=== PATIENT | female | born 1990 | race African-American/Black ===

== ENCOUNTER 2022-09-29 14:43 | Outpatient (CLI) | payer OTHER, SELFPAY ==
--- NOTE | ~2022-09-29 | US_ITS ---
EXAMINATION: US OB <= 14 weeks fetus DATE: 09/29/2022 16:10 INDICATION: Encounter for supervision of . TECHNIQUE: Real-time transabdominal obstetric ultrasound. FINDINGS: No prior studies for comparison. The uterus measures 13.7 x 10 x 8.6 cm. There are twin living intrauterine with 2 separate gestational sacs and 2 possible separate placentas. Findings compatible with dichorionic, diamniotic . Baby A crown rump length is 3.95 cm, 10 weeks 6 day gestation. Twin B crown-rump length is 4.25 cm, 11 weeks 1 day gestation. Twin A heart rate is 67 BPM. Twin B heart rate is 165 BPM. Right ovary measures 2.3 x 1.8 x 1.9 cm and contains a 1.3 cm follicle. Left ovary measures 1.8 x 1.7 x 1.8 cm. IMPRESSION: 1.: Twin living dichorionic, diamniotic intrauterine with an EGA of 11 weeks, 0 days (EDC b y current ultrasound of 04/20/2023). Reviewed, dictated and finalized at location A. IMPRESSION: 1.: Twin living dichorionic, diamniotic intrauterine with an EGA of 1 1 weeks, 0 days (EDC by current ultrasound of 04/20/2023).
== END 2022-09-29 14:44 | disposition home or self-care (01) ==
PROVIDERS: Visit Provider Registered Nurse
DX: O30.041 Twin pregnancy, dichorionic/diamniotic, first trimester (principal); Z3A.11 11 weeks gestation of pregnancy
CPT/HCPCS: 76801

== ENCOUNTER 2022-11-06 13:53 | Observation (INO) | payer OTHER, SELFPAY ==
[2022-11-06] VITALS (7 sets, daily range): BP systolic 90–136; BP diastolic 19–73; PULSE 91–110; BMI 28.0
[2022-11-06] MEDS: DEXTROSE 5%/0.9% SOD CHL 1,000 ML 200 ML IV CONT (14:51)
[2022-11-06] MEDS: PROCHLORPERAZINE EDISYLATE 10 MG/2 ML VIAL IV PUSH (14:54)
--- NOTE | 2022-11-06 14:58 | OBADM ---
This patient, Raegan Bryan, admitted to the OB room OB Post 112 for observation. Patient/family oriented to hospital policies and general routines including ID bracelet, bed and alarms, visiting hours, pain management, procedures, bathroom and other care routines, personal items, smoking policy, room service/diet, and visiting hours. Patient/Family are encouraged to report perceived risks to care and to ask questions if they do not understand what they are told or what they should do.
[2022-11-06 15:01] LABS: Basophils Percent Auto 0.3 % (0.2-1.2); Eosinophils Percent Auto 0.6 % (0-4.4); Hematocrit 32.6 % (37.0-47.0); Hemoglobin 10.9 g/dL (12.0-15.0); Immature Granulocyte Absolute 0.03 K/mm3 (0.00-0.031); Immature Granulocyte Percent A 0.4 % (0-0.5); Lymphocytes Absolute Auto 1.88 K/mm3 (0.9-3.2); Lymphocytes Percent Auto 27.6 % (18.3-44.2); Mean Corpuscular HGB Conc 33.4 g/dl (32-36); Mean Corpuscular Hemoglobin 29.5 pg (26-34); Mean Corpuscular Volume 88.1 fl (80-100); Mean Platelet Volume 11.1 fl (7.4-10.4); Monocytes Absolute Auto 0.3 K/mm3 (0.1-0.6); Monocytes Percent Auto 4.3 % (2.6-8.5); Neutrophils Absolute Auto 4.5 K/mm3 (1.3-6.7); Neutrophils Percent Auto 66.8 % (45.5-73.1); Platelet Count Result 209 k/mm3 (150-375); Red Cell Distribution Width 14.5 % (11.5-14.5); White Blood Count 6.8 K/mm3 (4.5-10.0)
[2022-11-06] MEDS: MORPHINE SULFATE (*CRX) 2 MG/ML INJ IV PUSH (15:02)
[2022-11-06 15:11] LABS: Alanine Aminotransferase 20 U/L (6-35); Albumin Level 4.1 g/dL (3.5-5.1); Alkaline Phosphatase 66 U/L (38-126); Anion Gap 9 mmol/L (8-16); Aspartate Amino Transferase 28 U/L (14-36); Bilirubin,Total 0.4 mg/dL (0.2-1.3); Blood Urea Nitrogen 7 mg/dL (7-17); Calcium 9.4 mg/dL (8.4-10.2); Carbon Dioxide 22 mmol/L (22-30); Chloride 104 mmol/L (98-107); Estimated CRCL calculation 151 ml/min; Estimated Glomerular Filt Rate > 60; Glucose 93 mg/dL (65-110); Potassium 3.5 mmol/L (3.4-5.0); Sodium 135 mmol/L (137-145)
--- NOTE | 2022-11-22 11:05 | PM.OBTRLD ---
OB - Triage/Final Diagnosis Visit Information Comments/Additional reasons for admission: I have assessed the risk for this patient, Raegan Bryan, and determined that she would benefit from observation care. Evaluation Laboratory results: Laboratory Tests 11/06/22 14:48 WBC 6.8 RBC 3.70 L Hgb 10.9 L Hct 32.6 L MCV 88.1 MCH 29.5 MCHC 33.4 RDW 14.5 Plt Count 209 MPV 11.1 H Immature Gran % (Auto) 0.4 Neut % (Auto) 66.8 Lymph % (Auto) 27.6 [place] % (Auto) 4.3 Eos % (Auto) 0.6 Baso % (Auto) 0.3 Lymph # (Auto) 1.88 [place] # (Auto) 0.3 Eos # (Auto) 0.0 Baso # (Auto) 0.0 Abs Immat Gran (auto) 0.03 Absolute Neuts (auto) 4.5 Absolute Nucleated RBC 0.0 Nucleated RBC % 0.0 Sodium 135 L Potassium 3.5 Chloride 104 Carbon Dioxide 22 Anion Gap 9 BUN 7 Creatinine 0.50 L Estim Creat Clear Calc 151 Estimated GFR > 60 Glucose 93 Calcium 9.4 Total Bilirubin 0.4 AST 28 ALT 20 Alkaline Phosphatase 66 Total Protein 8.0 Albumin 4.1 Final Diagnosis (1) Migraine headache: Code(s): G43.909 - Migraine, unspecified, not intractable, without status migrainosus Status: Acute
== END 2022-11-06 17:38 | disposition home or self-care (01) ==
PROVIDERS: Admitting Provider Obstetrics & Gynecology; Visit Provider Obstetrics & Gynecology
DX: O26.891 Other specified pregnancy related conditions, first trimester (principal); G43.909 Migraine, unspecified, not intractable, without status migrainosus; Z3A.16 16 weeks gestation of pregnancy
CPT/HCPCS: 36415; 80053; 85025; 96374; 96375; G0378; G0379; J0780; J2270; J7042

== ENCOUNTER 2022-11-20 11:40 | Observation (INO) | payer OTHER, SELFPAY ==
[2022-11-20 13:15] LABS: Appearance Urine Clear (Clear); Bilirubin Urine Negative (Negative); Blood Urine Negative (Negative); Color Urine Yellow (Yellow); Glucose Urine UA Negative (Negative); Ketones Urine Negative (Negative); Leukocyte Esterase Ur Negative LEU/UL (NEGATIVE); Nitrate Urine Negative (Negative); Protein Urine Negative (Negative); Specific Grav Ur 1.014 (1.001-1.035); Urobilinogen Urine 0.2 mg/dL (<2.0); pH Urine 8.5 (5.0-9.0)
[2022-11-20 13:27] LABS: Add Urine Microscopic? NO
--- NOTE | 2022-11-20 13:42 | PC.NURSE ---
Dr Pinto notified of lower abd cramping and UA results. Ok to check patient's cervix, if closed ok to dc home with precautions and encourage to use abd binder.
--- NOTE | 2022-12-11 19:05 | P.PNOB_ITS ---
OB - Triage/Final Diagnosis Visit Information Comments/Additional reasons for admission: I have assessed the risk for this patient, Raegan Bryan, and determined that she would benefit from observation care. Evaluation Laboratory results: Laboratory Tests 11/20/22 12:59 Urine Color Yellow Urine Appearance Clear Urine pH 8.5 Ur Specific [place] 1.014 Urine Protein Negative Urine Glucose (UA) Negative Urine Ketones Negative Ur Blood (Man) Negative Urine Nitrate Negative Urine Bilirubin Negative Urine Urobilinogen 0.2 Ur Leukocyte Esterase Negative Final Diagnosis (1) Migraine headache: Code(s): G43.909 - Migraine, unspecified, not intractable, without status migrainosus Status: Acute
== END 2022-11-20 14:06 | disposition home or self-care (01) ==
PROVIDERS: Admitting Provider Obstetrics & Gynecology; Visit Provider Obstetrics & Gynecology
DX: O99.354 Diseases of the nervous system complicating childbirth (principal); G43.909 Migraine, unspecified, not intractable, without status migrainosus; O26.891 Other specified pregnancy related conditions, first trimester; R10.9 Unspecified abdominal pain; Z3A.17 17 weeks gestation of pregnancy
CPT/HCPCS: 81003; 87086; G0378; G0379

== ENCOUNTER 2023-01-28 22:34 | Outpatient (CLI) | payer OTHER, SELFPAY ==
[2023-01-28] VITALS (12 sets, daily range): BP systolic 113–137; BP diastolic 52–80; PULSE 103–129; O2SAT 98–100
[2023-01-28 23:22] LABS: Basophils Percent Auto 0.2 % (0.2-1.2); Eosinophils Percent Auto 0.6 % (0-4.4); Hematocrit 27.8 % (37.0-47.0); Hemoglobin 9.1 g/dL (12.0-15.0); Immature Granulocyte Absolute 0.05 K/mm3 (0.00-0.031); Immature Granulocyte Percent A 0.8 % (0-0.5); Lymphocytes Absolute Auto 1.87 K/mm3 (0.9-3.2); Lymphocytes Percent Auto 28.3 % (18.3-44.2); Mean Corpuscular HGB Conc 32.7 g/dl (32-36); Mean Corpuscular Hemoglobin 28.4 pg (26-34); Mean Corpuscular Volume 86.9 fl (80-100); Mean Platelet Volume 12.1 fl (7.4-10.4); Monocytes Absolute Auto 0.3 K/mm3 (0.1-0.6); Monocytes Percent Auto 4.5 % (2.6-8.5); Neutrophils Absolute Auto 4.3 K/mm3 (1.3-6.7); Neutrophils Percent Auto 65.6 % (45.5-73.1); Platelet Count Result 159 k/mm3 (150-375); Red Cell Distribution Width 14.6 % (11.5-14.5); White Blood Count 6.6 K/mm3 (4.5-10.0)
[2023-01-28 23:25] LABS: Appearance Urine Clear (Clear); Bilirubin Urine Negative (Negative); Blood Urine Negative (Negative); Color Urine Yellow (Yellow); Glucose Urine UA Trace mg/dL (Negative); Ketones Urine 1+ mg/dL (Negative); Leukocyte Esterase Ur Negative LEU/UL (NEGATIVE); Nitrate Urine Negative (Negative); Protein Urine Negative (Negative); Specific Grav Ur 1.015 (1.001-1.035); Urobilinogen Urine 0.2 mg/dL (<2.0)
[2023-01-28 23:37] LABS: Alanine Aminotransferase 24 U/L (6-35); Albumin Level 3.4 g/dL (3.5-5.1); Alkaline Phosphatase 95 U/L (38-126); Anion Gap 7 mmol/L (8-16); Aspartate Amino Transferase 30 U/L (14-36); Bilirubin,Total 0.2 mg/dL (0.2-1.3); Blood Urea Nitrogen 5 mg/dL (7-17); Calcium 8.7 mg/dL (8.4-10.2); Carbon Dioxide 19 mmol/L (22-30); Chloride 107 mmol/L (98-107); Estimated Glomerular Filt Rate > 60; Glucose 130 mg/dL (65-110); Sodium 133 mmol/L (137-145); Uric Acid 3.7 mg/dL (2.5-7.5)
[2023-01-28 23:58] LABS: Add Urine Microscopic? NO
[2023-01-29] VITALS (16 sets, daily range): BP systolic 111–114; BP diastolic 52–61; PULSE 93–124; O2SAT 100
[2023-01-29] MEDS: LACTATED RINGERS 1,000 ML 999 ML IV CONT (00:23)
[2023-01-29 00:28] LABS: Creatinine Urine 89.1 mg/dL; Total Protein Urine Random 8 mg/dL; Ur Ttl Prot Creatinine Ratio 0.09 mg/mg (0-0.20)
--- NOTE | 2023-01-29 00:36 | OBADM ---
This patient, Raegan Bryan, admitted to the OB room OB Post 115 for observation. Patient/family oriented to hospital policies and general routines including ID bracelet, bed and alarms, visiting hours, pain management, procedures, bathroom and other care routines, personal items, smoking policy, room service/diet, and visiting hours. Patient/Family are encouraged to report perceived risks to care and to ask questions if they do not understand what they are told or what they should do.
== END 2023-01-29 01:07 | disposition home or self-care (01) ==
LOC: ANHOBPP 01-29 01:27 → ANHOBOP 01-30 06:51
PROVIDERS: Obstetrics & Gynecology; Visit Provider Obstetrics & Gynecology
DX: R51.9 Headache, unspecified (principal)
CPT/HCPCS: 36415; 80053; 81003; 82570; 84156; 84550; 85025; 87086; 87088; J7120

== ENCOUNTER 2023-01-31 16:53 | Observation (INO) | payer OTHER, SELFPAY ==
[2023-01-31] VITALS (10 sets, daily range): BP systolic 93–131; BP diastolic 45–78; PULSE 99–120; BMI 28.8
--- NOTE | ~2023-01-31 | US_ITS ---
EXAMINATION: US OB limited INDICATION: TWIN GESTATION - CERVICAL LENGTH ONLY PLEASE TECHNIQUE: Sonography of the pelvis was performed by transabdominal and transvaginal techniques. COMPARISON: 09/29/2022. RESULT: Cervical length 5.7 cm. The cervix is closed. Baby A: Location is fundal and to the maternal right. Male. Vertex, longitudinal lie. heart rat e 157 bpm. Deepest amniotic pocket measures 4.2 cm. Baby B: Location is fundal and to the maternal left. Breech, longitudinal lie. Female. heart ra te 161 bpm. Deepest amniotic pocket 3.4 cm IMPRESSION: Twin, live intrauterine gestations. Long and closed cervix, measuring 5.7 cm. Reviewed, dictated and finalized at location K.
[2023-01-31] MEDS: NIFEdipine 10 MG CAPSULE 20 MG PO (17:55)
[2023-01-31 18:22] LABS: Appearance Urine Clear (Clear); Bilirubin Urine Negative (Negative); Blood Urine Negative (Negative); Color Urine Yellow (Yellow); Glucose Urine UA Negative (Negative); Ketones Urine 1+ mg/dL (Negative); Leukocyte Esterase Ur Negative LEU/UL (Negative); Nitrate Urine Negative (Negative); Protein Urine Negative (Negative); Specific Grav Ur 1.005 (1.001-1.035); Urobilinogen Urine 0.2 mg/dL (<2.0); pH Urine 6.5 (5.0-9.0)
[2023-01-31] MEDS: LACTATED RINGERS 1,000 ML 999 ML IV CONT (18:23)
[2023-01-31] MEDS: ACETAMINOPHEN 500 MG TABLET 1000 MG PO (18:23)
[2023-01-31 18:25] LABS: Add Urine Microscopic? NO
[2023-01-31 18:55] LABS: Fetal Fibronectin Negative
--- NOTE | 2023-01-31 19:43 | OBADM ---
This patient, Raegan Bryan, admitted to the OB room Labor/Delivery/Recovery 106 for observation. Patient/family oriented to hospital policies and general routines including ID bracelet, bed and alarms, visiting hours, pain management, procedures, bathroom and other care routines, personal items, smoking policy, room service/diet, and visiting hours. Patient/Family are encouraged to report perceived risks to care and to ask questions if they do not understand what they are told or what they should do.
--- NOTE | 2023-02-01 10:15 | P.PNOB_ITS ---
OB - Triage/Final Diagnosis Visit Information Date of evaluation: 01/31/23 Reason for evaluation: threatened labor Comments/Additional reasons for admission: I have assessed the risk for this patient, Raegan Bryan, and determined that she would benefit from observation care. Evaluation Laboratory results: Laboratory Tests 01/31/23 18:01 Urine Color Yellow Urine Appearance Clear Urine pH 6.5 Ur Specific [place] 1.005 Urine Protein Negative Urine Glucose (UA) Negative Urine Ketones 1+ H Ur Blood (Man) Negative Urine Nitrate Negative Urine Bilirubin Negative Urine Urobilinogen 0.2 Leukocyte Esterase Rfl Negative Fibronectin Negative Vital signs: Vital Signs - 24 hr 01/31/23 17:45 01/31/23 17:53 01/31/23 18:00 Pulse Rate 99 100 104 H Blood Pressure 131/69 122/69 127/78 01/31/23 18:15 01/31/23 18:30 01/31/23 18:37 Pulse Rate 101 H 118 H 113 H Blood Pressure 125/73 125/66 118/57 L 01/31/23 18:45 01/31/23 19:00 01/31/23 19:15 Pulse Rate 120 H 119 H 113 H Blood Pressure 96/47 L 112/55 L 104/45 L 01/31/23 19:30 Pulse Rate 117 H Blood Pressure 93/74 L
== END 2023-01-31 19:55 | disposition home or self-care (01) ==
PROVIDERS: Admitting Provider Student in an Organized Health Care Education/Training Program; Visit Provider Student in an Organized Health Care Education/Training Program
DX: O47.03 False labor before 37 completed weeks of gestation, third trimester (principal); O30.003 Twin pregnancy, unspecified number of placenta and unspecified number of amniotic sacs, third trimester; Z3A.28 28 weeks gestation of pregnancy
CPT/HCPCS: 59025; 76815; 81003; 82731; A9270; G0378; G0379; J7120

== ENCOUNTER 2023-02-13 12:42 | Observation (INO) | payer SELFPAY ==
[2023-02-13] VITALS (21 sets, daily range): BP systolic 126–139; BP diastolic 66–81; PULSE 88–126; O2SAT 100
--- NOTE | ~2023-02-13 | US_ITS ---
EXAMINATION: 1. US OB limited 2. US OB BPP multi gestation DATE: 02/13/2023 14:30 INDICATION: Decreased movement. TECHNIQUE: Real-time ultrasound of the pelvis was performed. COMPARISON: Ultrasound 01/31/2023, 09/29/2022 FINDINGS: There are two living fetuses by a thick membrane. The placenta(s) is/are anterior. The amn iotic fluid volume is subjectively normal in each sac. Fetus A: Presentation is vertex. heart rate is 141 beats per minute (bpm). Biophysical profile performed by the technologist: breathing (30 sec sustained breathing in 30 minutes): 2 out of 2 movement (3 gross body movements in 30 minutes): 2 out of 2 tone (one episode of fpyrqve-rovfkofen-pdhicxy limb movement): 2 out of 2 Amniotic fluid pocket (2 cm): 2 out of 2 Total score: 8 out of 8 Fetus B: Presentation is vertex. heart rate is 145 bpm. Biophysical profile performed by the technologist: breathing (30 sec sustained breathing in 30 minutes): 2 out of 2 movement (3 gross body movements in 30 minutes): 2 out of 2 tone (one episode of caomygw-smukykgtc-dqkvenk limb movement): 2 out of 2 Amniotic fluid pocket (2 cm): 2 out of 2 Total score: 8 out of 8 IMPRESSION: 1. Living diamniotic twin fetuses, likely dichorionic. 2. Biophysical profile 8 out of 8 for fetus A and 8 out of 8 for fetus B. Reviewed, dictated and finalized at location A. IMPRESSION: 1. Living diamniotic twin fetuses, likely dichorionic. 2. Biophysical profile 8 out of 8 for fetus A and 8 out of 8 for fetus B.
[2023-02-13 14:10] LABS: Appearance Urine Clear (Clear); Bilirubin Urine Negative (Negative); Blood Urine Negative (Negative); Color Urine Yellow (Yellow); Glucose Urine UA Negative (Negative); Ketones Urine Negative (Negative); Leukocyte Esterase Ur Negative LEU/UL (Negative); Nitrate Urine Negative (Negative); Protein Urine Negative (Negative); Specific Grav Ur 1.003 (1.001-1.035); Urobilinogen Urine 0.2 mg/dL (<2.0); pH Urine 7.5 (5.0-9.0)
[2023-02-13 14:13] LABS: Add Urine Microscopic? NO
[2023-02-13 14:43] LABS: Fetal Fibronectin Negative
[2023-02-13] MEDS: TERBUTALINE SULFATE 1 MG/ML VIAL 0.25 MG SUB-Q (15:17)
--- NOTE | 2023-02-22 09:31 | PM.OBTRLD ---
OB - Triage/Final Diagnosis Visit Information Comments/Additional reasons for admission: I have assessed the risk for this patient, Raegan Bryan, and determined that she would benefit from observation care. Evaluation Laboratory results: Laboratory Tests 02/13/23 14:02 Urine Color Yellow Urine Appearance Clear Urine pH 7.5 Ur Specific [place] 1.003 Urine Protein Negative Urine Glucose (UA) Negative Urine Ketones Negative Ur Blood (Man) Negative Urine Nitrate Negative Urine Bilirubin Negative Urine Urobilinogen 0.2 Leukocyte Esterase Rfl Negative Fibronectin Negative Final Diagnosis (1) Decreased movement: Code(s): O36.8190 - Decreased movements, unspecified trimester, not applicable or unspecified Status: Acute (2) Spotting complicating , third trimester: Code(s): O26.853 - Spotting complicating , third trimester Status: Acute
== END 2023-02-13 16:40 | disposition home or self-care (01) ==
PROVIDERS: Admitting Provider Obstetrics & Gynecology; Visit Provider Obstetrics & Gynecology
DX: O36.8190 Decreased fetal movements, unspecified trimester, not applicable or unspecified (principal); O30.049 Twin pregnancy, dichorionic/diamniotic, unspecified trimester; Z3A.30 30 weeks gestation of pregnancy
CPT/HCPCS: 76815; 76819; 81003; 82731; 96372; G0378; G0379; J3105

== ENCOUNTER 2023-03-06 22:45 | Observation (INO) | payer MEDICAID, SELFPAY ==
[2023-03-06 23:04] VITALS: RESP 16; TEMP 36.9
[2023-03-06 23:06] VITALS: BP 138/81; PULSE 97
[2023-03-06 23:15] VITALS: BP 131/82; PULSE 90
[2023-03-06 23:30] VITALS: BP 128/80; PULSE 90
[2023-03-06 23:52] VITALS: BMI 63.9
--- NOTE | 2023-03-06 23:54 | OBADM ---
This patient, Raegan Bryan, admitted to the OB room OB Post 117 for observation. Patient/family oriented to hospital policies and general routines including ID bracelet, bed and alarms, visiting hours, pain management, procedures, bathroom and other care routines, personal items, smoking policy, room service/diet, and visiting hours. Patient/Family are encouraged to report perceived risks to care and to ask questions if they do not understand what they are told or what they should do.
[2023-03-07] VITALS (23 sets, daily range): BP systolic 126; BP diastolic 89; PULSE 85–120; O2SAT 78–100
[2023-03-07] MEDS: TERBUTALINE SULFATE 1 MG/ML VIAL 0.25 MG SUB-Q ×2 (00:04→01:01)
[2023-03-07] MEDS: CALCIUM CARBONATE (TUMS) 500 MG (200 MG ELEMENTAL) PO (02:19)
[2023-03-07] MEDS: FAMOTIDINE 20 MG TABLET PO (02:19)
--- NOTE | 2023-03-08 14:24 | PM.OBTRLD ---
OB - Triage/Final Diagnosis Visit Information Reason for evaluation: threatened labor Comments/Additional reasons for admission: I have assessed the risk for this patient, isaiahrolando Lupe Bryan, and determined that she would benefit from observation care.
== END 2023-03-07 02:44 | disposition home or self-care (01) ==
PROVIDERS: Admitting Provider Obstetrics & Gynecology; Visit Provider Obstetrics & Gynecology
DX: O47.9 False labor, unspecified (principal); Z3A.00 Weeks of gestation of pregnancy not specified
CPT/HCPCS: 96372; 96374; 96375; A9270; G0378; G0379; J1200; J1756; J3105